=== PATIENT | male | born 2000 | race Caucasian/White ===

== ENCOUNTER 2022-01-24 10:25 | Outpatient (CLI) | payer MEDICAID, SELFPAY ==
--- NOTE | 2022-01-24 | DI.CT_ITS ---
Exam(s) CT CHEST/ABD/PEL W EXAM: CT CHEST/ABD/PEL W CLINICAL HISTORY: BILAT RIB PAIN,R07.81,FLANK PAIN,R10.9,BLUNT TRAUMA. TECHNIQUE: Imaging Protocol: Axial computed tomography images with coronal and sagittal reformatted images were created and reviewed CONTRAST MATERIAL: Intravenous: Omnipaque 350 Contrast volume:100 ml Oral: no COMPARISON: No exams were available for comparison FINDINGS: CHEST: Tracheobronchial tree: Patent where visualized. Mediastinum and Lata: No dominant adenopathy or fluid collection. Pulmonary parenchyma: An azygos lobe is present, a normal variant. No consolidation or dominant joe urable mass. Pleura: No effusion or pneumothorax. Lymph nodes: Within normal limits. Aorta: Thoracic portion non-dilated. Heart: Bones: Mild midthoracic scoliosis. No evidence of spine or rib fracture. ABDOMEN: Liver: Normal density. No measurable mass. No laceration. Gallbladder and biliary tract: No radiodense calculus or dilation. Pancreas: Normal density, no abnormal calcifications or inflammatory process. Spleen: Normal. No laceration. Kidneys: Normal size, contour and axis. No radiodense stones or obstructive uropathy. No masses seen. No renal laceration. Adrenal glands: No masses seen. Aorta: Abdominal portion non-dilated. Lymph nodes: Within normal limits. Soft tissues: Unremarkable. PELVIS: Bladder: Symmetric distention, no gross wall thickening. Bowel: Large quantity of stool. No obstruction or bowel wall thickening. Peritoneal cavity: No ascites, collection or mesenteric inflammatory response. Bones: Unremarkable for age.. No fracture. Reproductive organs: Within normal limits. IMPRESSION: No acute abnormality in the chest abdomen or pelvis.. RADIATION DOSE DELIVERED: 810.71mGy.cm Total DLP DATA REPOSITORY: All CT scans at this facility are submitted to the National Radiology Data Registry (NRDR) Dose Index Registry (DIR) with the [employer] (ACR). RADIATION OPTIMIZATION: All CT scans at this facility use at least one of these dose optimization te chniques: automated exposure control; mA and/or kV adjustment per patient size (includes targeted exa ms where dose is matched to clinical indication); or iterative reconstruction.
== END 2022-01-24 10:45 ==
PROVIDERS: Visit Provider Physician Assistant Medical
DX: R07.81 Pleurodynia (principal); R10.9 Unspecified abdominal pain
CPT/HCPCS: 74177; 71260

== ENCOUNTER 2022-05-03 11:40 | Emergency (ER) | payer MEDICAID, SELFPAY ==
[2022-05-03 11:49] VITALS: BP 104/66; PULSE 90; RESP 18; TEMP 36.1
--- NOTE | 2022-05-03 12:52 | ED.GENADUL_ITS ---
Discharge Plan Disposition Patient Disposition: HOME Condition: Stable Discharge Details Clinical Impression: Dog bite of right thigh, Rabies, need for prophylactic vaccination against Primary Care Provider: None,None ED Provider: Adrián Avila Discharge Instructions Instructions: Rabies Vaccine (By injection), Rabies Immune Globulin (By injection), Animal Bite (ED) Additional Instructions: You are given initial dose of rabies vaccine. You will need to have additional vaccine on 05/06/2022, 05/10/2022 and 05/17/2022. The outpatient series has been ordered. Please schedule with infusion clinic. Please contact your primary care physician to arrange follow-up. Return to the ER immediately for any worsening or new concerning symptoms. Discharge Data Discharge Date/Time-TO BE ENTERED AT DEPARTURE: 05/03/22 14:10 Medical Decision Making <Adrián Avila MD - Last Filed: 05/10/22 16:07> RS -- 21-year-old male here 1 day status post dog bite to right inner thigh. Patient was seen at [facility] last night and had wound care including irrigation and Steri-Strip placement. Patient received tetanus vaccination. Patient now here seeking rabies vaccination. Will initiate treatment with weight-based immunoglobulin dose. And initial vaccine dose. I will order outpatient vaccine series to continue outpatient treatment. BP -- 05/06/22 Contacted by Infusion Medicine. Patient is here for next step in rabies vaccine schedule. Order was not with the patient, following Dr. Avila's initial orders outlined in his note, rewrote the orders so patient may receive treatment. <ANALY Trevino - Last Filed: 05/06/22 08:02> 21-year-old male here 1 day status post dog bite to right inner thigh. Patient was seen at [facility] last night and had wound care including irrigation and Steri-Strip placement. Patient received tetanus vaccination. Patient now here seeking rabies vaccination. Will initiate treatment with weight-based immunoglobulin dose. And initial vaccine dose. I will order outpatient vaccine series to continue outpatient treatment. 05/06/22 Contacted by Infusion Medicine. Patient is here for next step in rabies vaccine schedule. Order was not with the patient, following Dr. Avila's initial orders outlined in his note, rewrote the orders so patient may receive simone atment. HPI <Adrián Avila MD - Last Filed: 05/10/22 16:07> General Mode of arrival: ambulatory . Date/Time Provider Initiated Documentation: 05/03/22 12:52 . Limitations to Documentation: no limitations . Information obtained by: patient . HPI Narrative: 21-year-old male presents with chief complaint of dog bite sting rabies vaccination. 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 This occurred last night. Wound was moderate. He went to [facility] and had wound cleansed and repaired. He is here seeking rabies vaccination as dog immunization status unknown. Related Data Allergies Allergy/AdvReac Type Severity Reaction Status Date / Time vancomycin Allergy Unverified 05/03/22 13:33 General Stated Complaint: AnimalBite SHANNAN: 4 Review of Systems <Adrián Avila MD - Last Filed: 05/10/22 16:07> Constitutional Constitutional: Denies fever(s) Musculoskeletal Musculoskeletal: Denies numbness and Denies tingling Integumentary/Breasts Skin/Breast: Reports as per HPI Neurologic Neurologic: Denies numbness, Denies sensory deficit and Denies tingling PFSH <Adrián Avila MD - Last Filed: 05/10/22 16:07> All Active Problems (Updated 05/03/22 @ 13:00 by Adrián Avila MD) Dog bite of right thigh (Acute) Rabies, need for prophylactic vaccination against (Acute) Social History Smoking/Tobacco Use Status: Never Smoking risk assessment performed?: Yes Alcohol Intake: current Alcohol Intake frequency: holidays/special occasions only Alcohol type: beer Drug use: Never Substance use type: does not use Do you feel safe at home: Yes Do you feel safe in your relationship?: Yes Exam <Adrián Avila MD - Last Filed: 05/10/22 16:07> Skin General skin exam: no erythema and no fluctuance Extrem Right lower extremity: hip/thigh (Healing dog bite with Steri-Strips, no bleeding) Details: no crepitus Course <Adrián Avila MD - Last Filed: 05/10/22 16:07> Vital Signs Vital signs: Vital Signs Temperature 36.1 C L 05/03/22 11:49 Pulse 90 05/03/22 11:49 Respiratory Rate 18 05/03/22 11:49 Blood Pressure 104/66 05/03/22 11:49 Temperature 36.1 C L 05/03/22 11:49 Pulse 90 05/03/22 11:49 Respiratory Rate 18 05/03/22 11:49 Respiratory Effort Non-Labored 05/03/22 12:23 Blood Pressure 104/66 05/03/22 11:49
--- NOTE | 2022-05-03 13:08 | NUR.NOTE ---
Nursing Note: PT INFO GIVEN TO CARE MANAGEMENT TO GET A PCP TO ESTABLISH CARE. AIDEE, ED
[2022-05-03] MEDS: Rabies Immune Globulin 1,500 UNIT/5 ML VIAL 1406.14 UNITS IM (13:51)
--- NOTE | 2022-05-08 14:12 | PDOC.ERCMACT ---
- If Service Date Differs Date of service: 05/08/22 Time of Service: 14:12 Care Management Activity Note Jamarcus is seen in the ED for a dog bite of the right thigh. CM receives a request from ED provider to assist Jamarcus in establishing care with a PCP. CM calls the phone number on file for Jamarcus ([phone]) to verify his address and to inquire if he is still residing in [place] but there is no answer and the voice mailbox is full. CM will again attempt to reach him at a later time.
== END 2022-05-03 14:10 | disposition home or self-care (01) ==
PROVIDERS: Emergency Provider Student in an Organized Health Care Education/Training Program
DX: S71.151A Open bite, right thigh, initial encounter (principal); W54.0XXA Bitten by dog, initial encounter
CPT/HCPCS: 90471; 96372; 99284; 90675; 99283

== ENCOUNTER 2022-05-20 09:10 | Outpatient (RCR) | payer MEDICAID, SELFPAY | END 2022-05-26 23:59 | disposition home or self-care (01) | LOC: INF 09:10 | PROVIDERS: Visit Provider Physician Assistant | DX: Z20.3 Contact with and (suspected) exposure to rabies (principal) | CPT/HCPCS: 96372; 90675 ==

== ENCOUNTER 2022-11-29 17:55 | Outpatient (REF) | payer MEDICAID, SELFPAY ==
[2022-11-29 15:15] LABS: HGB 14.7 g/dL (13.5-17.5); MCH 32.2 pg (27.0-33.0); MCV 92 fL (80-95); MPV 10.9 fL (8.0-11.0); Platelet Count 252 10^3/uL (130-400); RBC 4.57 10^6/uL (4.36-5.78); RDW 11.5 % (11.8-14.1); RDW-SD 38.7 fL; WBC 3.82 10^3/uL (4.4-10.8)
[2022-11-29 15:19] LABS: ESR < 1 mm/hr (0-15)
[2022-11-29 15:54] LABS: ALT 29 U/L (16-63); AST 21 U/L (15-37); Albumin 4.4 g/dL (3.4-5.0); Alkaline Phosphatase 75 U/L (46-116); Anion Gap 5.9 mmol/L (3-11); BUN 13 mg/dL (7-18); Bilirubin, Total 0.8 mg/dL (0.2-1.0); CO2 32.1 mmol/L (21.0-32.0); CREATININE 0.9 mg/dL (0.70-1.30); Calcium 9.5 mg/dL (8.5-10.1); Chloride 104 mmol/L (98-107); Estimated GFR 123.07 (mL/min/1.73m2); Ferritin 62 ng/mL (26-388); Glucose 86 mg/dL (74-106); Potassium 4.1 mmol/L (3.5-5.1); Sodium 142 mmol/L (136-145); Total Protein 7.3 g/dL (6.4-8.2); Vitamin B12 802 pg/mL (193-986)
[2022-11-29 15:58] LABS: Iron 141 ug/dL (65-175)
[2022-11-29 16:07] LABS: C-Reactive Protein < 0.05 mg/dL (0.0-0.3)
[2022-11-29 21:56] LABS: Rheumatoid Factor <8.6 IU/mL (<12.0)
[2022-12-02 09:19] LABS: Cyclic Citrullinated Peptide <2.5 U/mL (<5.0)
[2022-12-05 10:07] LABS: ANA Interpretation Negative (Negative)
== END 2022-11-29 17:56 | disposition home or self-care (01) ==
LOC: NCHCN 17:55
PROVIDERS: Visit Provider Physician Assistant
DX: M25.59 Pain in other specified joint (principal)
CPT/HCPCS: 80053; 85027; 85652; 86200; 82607; 82728; 83540; 86038; 86140; 86431

== ENCOUNTER 2023-02-17 08:55 | Day surgery (SDC) | payer MEDICAID, SELFPAY ==
[2023-02-17] VITALS (8 sets, daily range): BP systolic 98–116; BP diastolic 59–91; PULSE 57–76; RESP 10–18; TEMP 36.3–36.8; O2SAT 95–100; BMI 20.8
--- NOTE | 2023-02-17 06:42 | W.ANESPRE ---
General Info Date of Service Date Performed: 02/17/23 Height: 6 ft Weight: 69.7 kg Body Mass Index (BMI): 20.8 Surgical Procedure: Operation Date: 02/17/23 11:10 Proposed Procedure Side Surgeon p Septoplasty Segun Quigley MD Meds Allergies and Home Medications Allergies Allergy/AdvReac Type Severity Reaction Status Date / Time vancomycin Allergy Unverified 02/17/23 10:01 Home Medication Medication Instructions Recorded ferrous fum 110 mg 1 cap PO DAILY 02/14/23 [id number].factor-vit C-folic acid 0.5 mg capsule multivitamin 1 tab PO DAILY 02/14/23 omega-3 fatty acids 1,000 mg PO DAILY 02/14/23 turmeric (bulk) 95 % powder pwd miscellaneous 02/14/23 (Curcumin) cephalexin 500 mg capsule 500 mg PO TID 7 days #21 caps 02/17/23 Current Visit Medications: Current Medications Generic Name Dose Route Start Last Admin Trade Name Freq PRN Reason Stop Dose Admin Ringer's Solution 1,000 mls @ 80 mls/hr 02/17/23 06:00 IV 03/16/23 23:59 INFUSION KEITH Cefazolin Sodium/Dextrose 2 gm in 50 mls @ 100 mls/hr 02/17/23 06:00 Ancef Duplex IVPB 03/16/23 23:59 PREOP KEITH Tranexamic Acid 1,000 mg/ 60 mls @ 360 mls/hr 02/17/23 06:00 Sodium Chloride IVPB 02/17/23 18:00 PREOP KEITH IV Miscellaneous Supplies 1 each 02/17/23 06:00 Iv Access IV 03/16/23 23:59 DIRECTED KEITH Sodium Chloride 0 ml 02/17/23 06:00 Normal Saline Flush 10 Ml Syr IV 03/16/23 23:59 PRN PRN Sodium Chloride 0 ml 02/17/23 06:00 Normal Saline 10 Ml Vial IJ 03/16/23 23:59 DIRECTED PRN Sterile Water 0 ml 02/17/23 06:00 Water,Injection,Sterile 10 Ml Vial IJ 03/16/23 23:59 DIRECTED PRN PFSH Medical History Medical History Allergic rhinitis Arthralgia Asthma, mild intermittent Deviated nasal septum History of concussion History of fibula fracture History of meningitis Idiopathic scoliosis Tobacco Smoking/Tobacco Use Status: Former Tobacco Use Alcohol Alcohol Intake: current Alcohol intake frequency: 0-2 drinks per day Alcohol type: beer and wine Substance Use Substance use: Never Substance use type: does not use Vital Signs and Lab Results Lab Results Blood Type / Crossmatch: No Data to Display Complete Blood Count: No Data to Display Complete Metabolic Panel: No Data to Display Liver Function Panel: No Data to Display Coagulation Panel: No Data to Display Cardiac Panel: No Data to Display Arterial Blood Gas: No Data to Display Venous Blood Gas: No Data to Display Pancreas Panel: No Data to Display Thyroid Panel: No Data to Display Infectious Disease: No Data to Display Blood Cultures: No Data to Display Toxicology Panel: No Data to Display Anesthesia Assessment and Plan Anesthesia History Personal History: Unknown Anesthesia History Family History: No Family History of Anesthesia Complications Exercise Tolerance Exercise Tolerance: Metabolic Equivalents>4 Pertinent Negatives Pertinent Negatives: No Symptoms of GERD, No Major Cardiovascular Symptoms or Complaints, No Major Pulmonary Symptoms or Complaints and No History of CVA/TIA Cardiac & Pulmonary Exam Cardiac Exam: Normal S1/S2 Heart Sounds Pulmonary Exam: Clear Bilateral Breath Sounds Implantable Cardiac Device Does patient have a Pacemaker or an ICD?: No Airway Exam Known Difficult Airway: No Mallampati Class: 1 Mouth Opening: Normal (> 3cm) Thyromental Distance: Greater than 3 cm Neck Range of Motion: Full ROM Neck Circumference: Normal Teeth Condition: Normal Dentition ASA Classification ASA Score: ASA 2 (Daily wine) Emergency Case?: No NPO Status NPO Status: NPO Clears >2 hours, Solids >8 hours Anesthesia Plan Resuscitation Status: Full Code Anesthesia Technique: General Anesthesia Airway Planned: Endotracheal Tube Monitors Used: Standard Monitors
[2023-02-17] MEDS: Lactated Ringers 1,000 ML 80 ML IV (10:10)
--- NOTE | 2023-02-17 10:42 | W.PM.DSUDISC ---
Date of service: 02/17/23 Time of Service: 10:48 Discharge Plan Disposition Patient Disposition: Home Condition: Good Discharge Details Attending Provider: Segun Quigley Primary Care Provider: Josh Signh Home Meds and New Rx's Prescriptions: New cephalexin 500 mg capsule 500 mg PO TID 7 Days Qty: 21 0RF No Action multivitamin Tablet 1 tab PO DAILY iron [id number]-G-mkiov acid 110-0.5 mg Capsule 1 cap PO DAILY Fish Oil Concentrate Capsule 1,000 mg PO DAILY Curcumin 95 % Powder MISCELLANEOUS
[2023-02-17] MEDS: ceFAZolin 2 GM/50 ML BAG IVPB (12:27)
[2023-02-17] MEDS: Cocaine Nasal 4% 4 ML BTL (12:44)
[2023-02-17] MEDS: Bacitracin 1 PACKET (12:56)
[2023-02-17] MEDS: Lidocaine 1% Multi-Dose W/EPI 1/100,000 50 ML VIAL (12:57)
--- NOTE | 2023-02-17 14:47 | W.ANESPOSTOP ---
Postoperative Evaluation Date, Time and Location Date Performed: 02/17/23 Time Performed: 14:47 Patient Location: Day Surgery Unit Vital Signs Most Recent Imported Vital Signs: Most Recent Vital Signs Temp Pulse Resp BP Pulse Ox 36.5 C 76 18 114/91 H 100 02/17/23 14:41 02/17/23 14:41 02/17/23 14:41 02/17/23 14:41 02/17/23 14:41 Pain Score Most Recent Pain Score: Most Recent Pain Score Pain Level 2 02/17/23 14:41 Assessment Mental Status: Awake (Alert & Oriented to Patient Baseline) Airway and Respiratory Function: Patent airway with normal (patient baseline) respiratory exam Cardiovascular Function: Hemodynamically Stable Hydration Status: Adequately Hydrated Nausea & Vomiting: No Nausea or Vomiting Pain: Pain is Moderate or Severe Postoperative Pain Management: Pain being addressed with medication Peripheral Nerve Block: Patient did not receive a nerve block
[2023-02-17] MEDS: Acetaminophen 500 MG TAB 1000 MG PO (14:54)
--- NOTE | 2023-02-17 17:09 | ROE_ITS ---
Date of service: 02/17/23 Time of Service: 17:10 Operative Note Operative Note DATE OF PROCEDURE: 02/17/23 PRE-OP DIAGNOSIS: Deviated nasal septum with right-sided nasal obstruction POST-OP DIAGNOSIS: same PROCEDURE: Septoplasty SURGEON: Segun Quigley ANESTHESIA TYPE: General LMA/ETT Refer to Anesthesia Record ESTIMATED BLOOD LOSS: 50 PATHOLOGY: none sent COMPLICATIONS: None Patient was transported to: PACU Patient's condition: stable Implants: Valentin splints Indications: Patient with right-sided nasal obstruction, chronic and medically recalcitrant. Options were explained to the patient regarding further management. He elected to undergo the above procedure. Consent was reviewed. Operative and postoperative courses were reviewed. H&P was updated. The below was then performed. Findings: Markedly deviated nasal septum with greater than 95% obstruction of the right nasal vault. Procedure Description: After obtaining an adequate level of general endotracheal anesthesia the patient was positioned in a supine position and prepped and draped in appropriate fashion. 1% lidocaine with 1/100,000 epinephrine was injected into the septum bilaterally as well as into the inferior turbinates. Cocaine soaked nasal pledgets were placed along the inferior turbinates and left for 5 minutes before being removed. A left-sided hemitransfixion incision was made with a 15 blade and then submucoperichondrial and submucoperiosteal planes were developed along the left side of the nasal septum posterior to the hemitransfixion incision. A [place] knife was then used to incise the quadrangular cartilage leaving a strong dorsal and columellar strut and submucoperichondrial and submucoperiosteal planes were then developed along the opposite side of the nasal septum posteriorly. Swivel knife was used to remove the bulk of the deviated quadrangular cartilage and then a combination of Andres-Segal's and Jimbo's was used to remove a large spur from along the floor. There is also a tongue of quadrangular cartilage that extended posteriorly along the septum on the right. This was removed. With this removed, the septum was examined revealing a nicely medialized septum with no significant residual deviation. Nasal airways appeared equal bilaterally. The nasal tip was stable as well as the columella. There is no evidence of nasal collapse. A small drain hole was made in the right posterior aspect of the septum to allow any blood to escape. After ensuring adequate hemostasis, four-point 0 chromic sutures were used to approximate the edges of the hemitransfixion incision and then Valentin splints placed along the septum bilaterally and sutured into place using a 3.0 Prolene on a Khadar needle. The patient was then awakened and extubated by anesthesia and taken the recovery room in stable condition. I was present throughout the entire case. At the end of the septoplasty, a [place] elevator could be passed freely from the anterior nares to the nasopharynx without restriction
== END 2023-02-17 15:21 | disposition home or self-care (01) ==
PROVIDERS: PCP Physician Assistant; Visit Provider Otolaryngology
PROC: (CPT 30520; principal; 2023-02-17 11:00)
DX: J34.2 Deviated nasal septum (principal); J45.20 Mild intermittent asthma, uncomplicated; Z87.891 Personal history of nicotine dependence
CPT/HCPCS: 30520; J0690; J1100; J2250; J2405; J2704

== ENCOUNTER 2023-03-31 04:25 | Emergency (ER) | payer MEDICAID, SELFPAY ==
[2023-03-31 04:30] VITALS: BP 109/64; PULSE 75; RESP 18; TEMP 36.6; O2SAT 100
--- NOTE | 2023-03-31 04:45 | DI.RAD_ITS ---
Exam(s) XR WRIST RT COMPLETE EXAM: XR WRIST RT COMPLETE CLINICAL HISTORY: right wrist pain, fall yesterday. TECHNIQUE: 2D digital imaging was performed of the right wrist. Three views were obtained. PA, lat eral and oblique views were obtained. COMPARISON: No exams were available for comparison FINDINGS: BONES: No acute fracture is present. No bony destructive lesion is seen. JOINTS: The carpal bones are normally aligned. The joint spaces are well maintained. SOFT TISSUE: Soft tissue swelling along the dorsum of the wrist. IMPRESSION: No definite acute fracture or dislocation. If symptoms persist, a follow-up examination in 10-14 day s may be obtained for re-evaluation. DATA REPOSITORY: RADIATION DOSE DELIVERED:
--- NOTE | 2023-03-31 04:48 | ED.GENADUL_ITS ---
Discharge Plan Disposition Patient Disposition: Home Condition: Stable Discharge Details Chief Complaint: Orthopedic Clinical Impression: Wrist pain Primary Care Provider: Josh Singh ED Provider: Humberto Albert Home Meds and New Rx's Prescriptions: No Action multivitamin Tablet 1 tab PO DAILY iron [id number]-N-agcdo acid 110-0.5 mg Capsule 1 cap PO DAILY Fish Oil Concentrate Capsule 1,000 mg PO DAILY Curcumin 95 % Powder MISCELLANEOUS Discharge Instructions Instructions: Wrist Injury (ED) Additional Instructions: Please use splint as instructed. Please follow-up with orthopedic team. Return to the emergency department for any worsening symptom Medical Decision Making 22-year-old male presents 1 day after skateboard injury which he fell onto extended right upper extremity, pain to distal radius and ulna, concern for fracture of distal radius and/or ulna low suspicion for dislocation versus contusion. Neurovascular exam of limb intact. We will try analgesia in the form of IM Toradol. X-ray wrist. Disposition pending imaging results 6: 42 resting comfortably no acute distress. Despite negative x-ray, patient's level of pain warrants splinting. Consider severe contusion versus sprain versus occult fracture. Will be given close follow-up with orthopedic team. Home care instructions and return precautions given HPI General Date/Time Provider Initiated Documentation: 03/31/23 04:44 . HPI Narrative: 22-year-old male presents 1 day after falling off his skateboard onto his left hand that was extended behind him, pain to distal wrist. No other injuries Related Data Home Medications Medication Instructions Recorded Confirmed ferrous fum 110 mg 1 cap PO DAILY 02/14/23 03/19/23 [id number]-[id number]-rsp.factor-vit C-folic acid 0.5 mg capsule multivitamin 1 tab PO DAILY 02/14/23 03/19/23 omega-3 fatty acids 1,000 mg PO DAILY 02/14/23 03/19/23 turmeric (bulk) 95 % powder pwd miscellaneous 02/14/23 03/19/23 (Curcumin) Allergies Allergy/AdvReac Type Severity Reaction Status Date / Time vancomycin Allergy Unverified 03/31/23 04:37 General Stated Complaint: Orthopedic SHANNAN: 4 Review of Systems Narrative: Review of Systems Constitutional: negative Eyes: negative ENT: negative Cardiovascular: negative Respiratory: negative Gastrointestinal: negative : negative Musculoskeletal: Wrist pain Skin: negative Neurologic: negative Psych: negative PFSH All Active Problems (Updated 03/31/23 @ 06:33 by Humberto Albert MD) Wrist pain (Acute) Medical History Allergic rhinitis Arthralgia Asthma, mild intermittent Deviated nasal septum History of concussion History of fibula fracture History of meningitis Idiopathic scoliosis Surgical History H/O nasal septoplasty 02/17/2023 Social History Smoking/Tobacco Use Status: Former Tobacco Use Smoking risk assessment performed?: Yes Alcohol Intake: current Alcohol Intake frequency: 0-2 drinks per day Alcohol type: beer and wine Drug use: Never Substance use type: does not use Do you feel safe at home: Yes Do you feel safe in your relationship?: Yes Exam Narrative Exam Narrative: Physical Examination General: alert, awake, cooperative, appears uncomfortable HEENT: normocephalic, atraumatic; PERRL, EOM intact, conjunctiva normal; no nasal discharge; moist mucous membranes, oral and pharyngeal mucosa normal, dayron erating secretions Neck: supple, trachea midline; full ROM Chest: normal to inspection Respiratory: normal respiratory effort, speaking in full sentences Skin: no lesions, rashes or trauma appreciated Neuro: AAOx3, normal speech, moving all extremities Extremities: Pain to palpation distal radius and distal ulna of right upper extremity, no external signs of deformity or crepitus, radial pulse intact, median radial and ulnar nerve distribution sensory exam intact, flexion extension fingers intact Psych: Appropriate mood and affect Course Vital Signs Vital signs: Vital Signs Temperature 36.6 C 03/31/23 04:30 Pulse 75 03/31/23 04:30 Respiratory Rate 18 03/31/23 04:30 Blood Pressure 109/64 03/31/23 04:30 Pulse Oximetry 100 03/31/23 04:30 Temperature 36.6 C 03/31/23 04:30 Temperature Source Oral 03/31/23 04:30 Pulse 75 03/31/23 04:30 Respiratory Rate 18 03/31/23 04:30 Respiratory Effort Normal 03/31/23 04:36 Blood Pressure 109/64 03/31/23 04:30 Blood Pressure Position Supine 03/31/23 04:30 Pulse Oximetry 100 03/31/23 04:30 Oxygen Delivery Method Room Air 03/31/23 04:30 Oxygen Flow Rate 0 03/31/23 04:30 Pain Level 9 03/31/23 04:30
[2023-03-31] MEDS: Ketorolac 15 MG/ML VIAL IM (04:53)
--- NOTE | 2023-03-31 06:17 | DI.VRAD_ITS ---
PROCEDURE INFORMATION: Exam: XR Right Wrist Exam date and time: 03/31/2023 5:05 AM Age: 22 years old Clinical indication: Injury or trauma; Blunt trauma (contusions or hematomas); Injury date: 03/30/23; Patient HX: Right wrist pain, fall yesterday TECHNIQUE: Imaging protocol: Radiologic exam of the right wrist. Views: 3 or more views. COMPARISON: No relevant prior studies available. FINDINGS: Bones/joints: Normal. Soft tissues: Normal. IMPRESSION: No acute findings. Dictated and Authenticated by: Rea Spivey MD. Ordering:MINAL Paul MD
--- NOTE | 2023-04-01 11:36 | NUR.NOTE ---
Nursing Note: Accessed chart for [facility] billing purposes.
== END 2023-03-31 06:53 | disposition home or self-care (01) ==
PROVIDERS: Emergency Provider Emergency Medicine; PCP Physician Assistant
DX: S63.91XA Sprain of unspecified part of right wrist and hand, initial encounter (principal); V00.131A Fall from skateboard, initial encounter
CPT/HCPCS: 96372; 99284; 73110; J1885